=== PATIENT | male | born 1970 | race Two or more races ===

== ENCOUNTER 2022-12-06 17:08 | Inpatient (IN) | payer BC, OTHER ==
[~2022-12-06] VITALS: Ht 177.8 cm; Wt 155.0 kg
[2022-12-06] MEDS ORDERED: FUROSEMIDE 100 MG/10ML VIAL IV ONE (17:45)
[2022-12-06 18:20] LABS: Hemoglobin 12.8 g/dL (13.5-17.5); Mean Corpuscular Hgb Conc. 30.9 g/dL (32.0-36.0); Nucleated Red Blood Cells % 0.1 %
[2022-12-06 18:22] LABS: Basophils # (auto) 0.2 10 ^3/uL (0-0.2); Eosinophils # (auto) 0.4 10 ^3/uL (0-0.8); Eosinophils % (auto) 2.8 % (0.0-7.0); Hematocrit 41.4 % (41.0-53.0); Lymphocytes # (auto) 2.2 10 ^3/uL (0.4-5.4); Lymphocytes % (auto) 14.2 % (10.0-50.0); Mean Corpuscular Hemoglobin 25.4 pg (28.0-32.0); Mean Corpuscular Volume 82.1 fL (80.0-100.0); Monocytes # (auto) 1.6 10 ^3/uL (0-1.3); Monocytes % (auto) 9.9 % (0.0-12.0); Neutrophils # (auto) 11.4 10 ^3/uL (1.6-8.6); Neutrophils % (auto) 72.1 % (37.0-80.0); Red Blood Cells 5.04 10^6/uL (4.5-5.90); White Blood Cell 15.8 10^3/uL (4.4-10.8)
[2022-12-06 18:38] LABS: Albumin 3.2 g/dL (3.4-5.0); Calcium 7.6 mg/dL (8.5-10.1); Magnesium 2.9 mg/dL (1.6-2.6); Potassium 4.6 mmol/L (3.5-5.1)
[2022-12-06 18:41] LABS: Bilirubin, Total 0.3 mg/dL (0.2-1.0); Total Protein 7.4 g/dL (6.4-8.2)
[2022-12-06] MEDS ORDERED: NITROGLYCERIN 0.4 MG SL TAB SL PRN (22:30)
[2022-12-06] MEDS ORDERED: HYDROcodone-ACET 5/325MG TAB PO PRN (22:30)
[2022-12-06] MEDS ORDERED: MORPHINE SULFATE INJ 2 MG/ml SYRG IV PRN (22:30)
[2022-12-06] MEDS ORDERED: hydrALAZINE HCL 20 MG/ML VL IV PRN (22:30)
[2022-12-06] MEDS ORDERED: cefTRIAXone 1GM/50ML D5W 50 ML IV ONE (22:30)
[2022-12-06] MEDS ORDERED: DOCUSATE SOD 100 MG CAP PO PRN (22:30)
[2022-12-06] MEDS ORDERED: methylPREDNISolone SOD SUCC 125 MG/2 ML VL IV ONE (22:30)
[2022-12-06] MEDS ORDERED: NALOXONE HCL 1MG/ML 2ML SYRINGE ONE ×2 (23:53)
[2022-12-07] VITALS (38 sets, daily range): BP systolic 77–161; BP diastolic 34–86
[2022-12-07] MEDS ORDERED: ROCURONIUM 10MG/ML 10ML VIAL IV ONE ×4 (00:01→03:15)
[2022-12-07] MEDS ORDERED: NALOXONE HCL 0.4 MG/ML VIAL ONE (00:01)
[2022-12-07] MEDS ORDERED: KETAMINE HCL 10 ML ONE (00:04)
[2022-12-07] MEDS ORDERED: SODIUM BICARBONATE 8.4 % INJ 50ML VIAL IV ONE ×2 (00:09→00:10)
[2022-12-07] MEDS ORDERED: NALOXONE HCL 0.4 MG/ML VIAL IV ONE ×2 (00:15)
[2022-12-07] MEDS ORDERED: KETAMINE 50mg/ML 10ml Vial (500mg/10ml) IV ONE (00:30)
[2022-12-07] MEDS ORDERED: NALOXONE HCL 1MG/ML 2ML SYRINGE IV ONE (01:00)
[2022-12-07] MEDS ORDERED: MIDAZOLAM DRIP 50 mg/50mL 50 ML IV ONE (02:02)
[2022-12-07] MEDS ORDERED: fentaNYL Drip 2500mCg/250mlNS 250 ML IV ONE (02:09)
[2022-12-07] MEDS: fentaNYL Drip 2500mCg/250mlNS 250 ML IV SCH ×2 (02:34→23:56)
[2022-12-07] MEDS: MIDAZOLAM DRIP 50 mg/50mL 50 ML IV SCH ×3 (02:34→23:56)
[2022-12-07] MEDS ORDERED: PROPOFOL 100 ML IV ONE (02:44)
[2022-12-07] MEDS ORDERED: SODIUM CHLORIDE 0.9% 1,000 ML IV ONE (03:00)
[2022-12-07] MEDS ORDERED: NOREPINEPHRINE 8 MG/250ML KIT 250 ML IV ONE (03:13)
[2022-12-07] MEDS: PROPOFOL 100 ML IV SCH ×2 (03:34→21:49)
[2022-12-07] MEDS: NOREPINEPHRINE 8 MG/250ML KIT 250 ML IV SCH (03:35)
[2022-12-07 05:19] LABS: Basophils # (auto) 0.1 10 ^3/uL (0-0.2); Eosinophils # (auto) 0 10 ^3/uL (0-0.8); Eosinophils % (auto) 0.1 % (0.0-7.0); Mean Corpuscular Hemoglobin 25.8 pg (28.0-32.0); Nucleated Red Blood Cells % 0.2 %
[2022-12-07 05:21] LABS: Basophils % (auto) 0.6 % (0.0-2.0); Hematocrit 44.2 % (41.0-53.0); Hemoglobin 13.8 g/dL (13.5-17.5); Lymphocytes # (auto) 1.3 10 ^3/uL (0.4-5.4); Lymphocytes % (auto) 5.4 % (10.0-50.0); Mean Corpuscular Hgb Conc. 31.1 g/dL (32.0-36.0); Monocytes # (auto) 2.7 10 ^3/uL (0-1.3); Monocytes % (auto) 11.2 % (0.0-12.0); Neutrophils % (auto) 82.7 % (37.0-80.0); Red Blood Cells 5.33 10^6/uL (4.5-5.90); Red Cell Distribution Width 16.7 % (11.8-14.3); White Blood Cell 24.2 10^3/uL (4.4-10.8)
[2022-12-07 05:32] LABS: Albumin 3.5 g/dL (3.4-5.0); Calcium 7.7 mg/dL (8.5-10.1); Potassium 5.1 mmol/L (3.5-5.1)
[2022-12-07 05:36] LABS: BUN/Creatinine Ratio 16.3 (10.0-20.0); Bilirubin, Total 0.5 mg/dL (0.2-1.0); Total Protein 8.3 g/dL (6.4-8.2)
[2022-12-07] MEDS ORDERED: methylPREDNISolone SOD SUCC 40 MG/ML VL IV SCH (06:00)
[2022-12-07] MEDS: SODIUM CHLOR 0.9% PF (SALINE LOCK) 10ML VIAL/SYR IV SCH ×3 (06:01→21:50)
[2022-12-07] MEDS: ACETAMINOPHEN 325 MG TAB PO PRN (06:35)
[2022-12-07] MEDS ORDERED: ACETAMINOPHEN 650 MG RECT SUPP PR PRN (07:00)
[2022-12-07 07:21] LABS: Urine Bacteria NONE SEEN /hpf (None Seen); Urine Blood TRACE /uL (Negative); Urine Specific Gravity 1.022 (1.001-1.035); Urine WBC 1 /hpf (0 - 3)
[2022-12-07] MEDS: cefTRIAXone 1GM/50ML D5W 50 ML IV SCH (09:55)
[2022-12-07] MEDS: ZINC SULFATE 220mg CAP or TAB PO SCH (10:00)
[2022-12-07] MEDS: amLODIPine BESYLATE 5 MG TAB PO SCH (10:00)
[2022-12-07] MEDS: ENOXAPARIN SOD 40 MG/0.4 ML SYRINGE SC SCH (10:42)
[2022-12-07] MEDS: FUROSEMIDE 40 MG/4 ML VIAL IV SCH (10:45)
[2022-12-07] MEDS: FAMOTIDINE (10MG/ML) 2ML VL IV SCH (10:46)
[2022-12-07] MEDS: ASPirin 81 mg TAB PO SCH (10:55)
[2022-12-07] MEDS ORDERED: AZITHROMYCIN 500MG/ 250ML 250 ML IV ONE (12:30)
[2022-12-08] VITALS (84 sets, daily range): BP systolic 94–151; BP diastolic 55–84
[2022-12-08] MEDS: PROPOFOL 100 ML IV SCH ×4 (01:58→19:31)
[2022-12-08] MEDS: NOREPINEPHRINE 8 MG/250ML KIT 250 ML IV SCH (03:30)
[2022-12-08] MEDS: SODIUM CHLOR 0.9% PF (SALINE LOCK) 10ML VIAL/SYR IV SCH ×4 (05:26→22:00)
[2022-12-08 05:35] LABS: Basophils # (auto) 0.1 10 ^3/uL (0-0.2); Eosinophils # (auto) 0.1 10 ^3/uL (0-0.8); Eosinophils % (auto) 0.5 % (0.0-7.0); Hemoglobin 11.9 g/dL (13.5-17.5); Neutrophils # (auto) 10.6 10 ^3/uL (1.6-8.6); Nucleated Red Blood Cells % 0.1 %
[2022-12-08 05:37] LABS: Basophils % (auto) 0.8 % (0.0-2.0); Hematocrit 37.5 % (41.0-53.0); Lymphocytes # (auto) 1.6 10 ^3/uL (0.4-5.4); Lymphocytes % (auto) 11.5 % (10.0-50.0); Mean Corpuscular Hemoglobin 25.1 pg (28.0-32.0); Mean Corpuscular Hgb Conc. 31.8 g/dL (32.0-36.0); Monocytes # (auto) 1.4 10 ^3/uL (0-1.3); Neutrophils % (auto) 77.2 % (37.0-80.0); Red Blood Cells 4.75 10^6/uL (4.5-5.90); Red Cell Distribution Width 16.4 % (11.8-14.3); White Blood Cell 13.8 10^3/uL (4.4-10.8)
[2022-12-08 05:57] LABS: Calcium 7.7 mg/dL (8.5-10.1); Potassium 3.5 mmol/L (3.5-5.1)
[2022-12-08] MEDS: ASPirin 81 mg TAB PO SCH (09:37)
[2022-12-08] MEDS: MIDAZOLAM DRIP 50 mg/50mL 50 ML IV SCH ×3 (09:37→23:15)
[2022-12-08] MEDS: ZINC SULFATE 220mg CAP or TAB PO SCH (09:37)
[2022-12-08] MEDS: FAMOTIDINE (10MG/ML) 2ML VL IV SCH (09:37)
[2022-12-08] MEDS: amLODIPine BESYLATE 5 MG TAB PO SCH (09:38)
[2022-12-08] MEDS: ENOXAPARIN SOD 40 MG/0.4 ML SYRINGE SC SCH (09:38)
[2022-12-08] MEDS: AZITHROMYCIN 500MG/ 250ML 250 ML IV SCH (09:38)
[2022-12-08] MEDS: cefTRIAXone 1GM/50ML D5W 50 ML IV SCH (09:38)
[2022-12-08] MEDS: FUROSEMIDE 40 MG/4 ML VIAL IV SCH ×2 (09:38→18:10)
[2022-12-08] MEDS: fentaNYL Drip 2500mCg/250mlNS 250 ML IV SCH (09:39)
[2022-12-08 11:49] LABS: INR 1.16 (0.9-1.15); Partial Thromboplastin Time 28.6 sec (24.6-33.4)
[2022-12-08] MEDS ORDERED: LIDOCAINE 1% (LOCAL ANESTH.) PF 5ml SDV ID ONE (14:45)
[2022-12-08] MEDS ORDERED: PERCOT PO (17:11)
[2022-12-08] MEDS ORDERED: MORP15TA PO (17:11)
[2022-12-08] MEDS: Jevity 1.2 Cal/Fiber 1 Liter GT SCH (19:27)
[2022-12-09] VITALS (97 sets, daily range): BP systolic 98–158; BP diastolic 58–99
[2022-12-09] MEDS: fentaNYL Drip 2500mCg/250mlNS 250 ML IV SCH ×2 (00:39→12:56)
[2022-12-09] MEDS: PROPOFOL 100 ML IV SCH ×5 (01:31→22:26)
[2022-12-09] MEDS: NOREPINEPHRINE 8 MG/250ML KIT 250 ML IV SCH (03:30)
[2022-12-09] MEDS: MIDAZOLAM DRIP 50 mg/50mL 50 ML IV SCH ×5 (03:48→20:23)
[2022-12-09 05:17] LABS: Basophils # (auto) 0.1 10 ^3/uL (0-0.2); Eosinophils # (auto) 0.2 10 ^3/uL (0-0.8); Eosinophils % (auto) 2.2 % (0.0-7.0); Lymphocytes # (auto) 1.3 10 ^3/uL (0.4-5.4); Monocytes # (auto) 0.9 10 ^3/uL (0-1.3)
[2022-12-09 05:20] LABS: Basophils % (auto) 1.1 % (0.0-2.0); Hematocrit 37.3 % (41.0-53.0); Hemoglobin 12.3 g/dL (13.5-17.5); Lymphocytes % (auto) 12.4 % (10.0-50.0); Mean Corpuscular Hemoglobin 26.1 pg (28.0-32.0); Mean Corpuscular Hgb Conc. 32.9 g/dL (32.0-36.0); Mean Corpuscular Volume 79.6 fL (80.0-100.0); Monocytes % (auto) 8.1 % (0.0-12.0); Neutrophils # (auto) 8.1 10 ^3/uL (1.6-8.6); Neutrophils % (auto) 76.2 % (37.0-80.0); Red Blood Cells 4.69 10^6/uL (4.5-5.90); Red Cell Distribution Width 16.4 % (11.8-14.3); White Blood Cell 10.7 10^3/uL (4.4-10.8)
[2022-12-09 05:33] LABS: Calcium 7.9 mg/dL (8.5-10.1); Potassium 3.6 mmol/L (3.5-5.1)
[2022-12-09 05:35] LABS: BUN/Creatinine Ratio 25.7 (10.0-20.0)
[2022-12-09] MEDS: FUROSEMIDE 40 MG/4 ML VIAL IV SCH ×2 (06:00→17:51)
[2022-12-09] MEDS: SODIUM CHLOR 0.9% PF (SALINE LOCK) 10ML VIAL/SYR IV SCH ×5 (06:00→22:27)
[2022-12-09] MEDS: cefTRIAXone 1GM/50ML D5W 50 ML IV SCH (08:01)
[2022-12-09] MEDS: amLODIPine BESYLATE 5 MG TAB PO SCH (10:00)
[2022-12-09] MEDS: AZITHROMYCIN 500MG/ 250ML 250 ML IV SCH (10:07)
[2022-12-09] MEDS: FAMOTIDINE (10MG/ML) 2ML VL IV SCH (10:07)
[2022-12-09] MEDS: ASPirin 81 mg TAB PO SCH (10:08)
[2022-12-09] MEDS: ENOXAPARIN SOD 40 MG/0.4 ML SYRINGE SC SCH (10:08)
[2022-12-09] MEDS: ZINC SULFATE 220mg CAP or TAB PO SCH (10:08)
[2022-12-10] VITALS (104 sets, daily range): BP systolic 92–138; BP diastolic 46–97
[2022-12-10] MEDS: MIDAZOLAM DRIP 50 mg/50mL 50 ML IV SCH ×7 (00:29→21:34)
[2022-12-10] MEDS: PROPOFOL 100 ML IV SCH ×5 (01:47→19:57)
[2022-12-10] MEDS: NOREPINEPHRINE 8 MG/250ML KIT 250 ML IV SCH (03:30)
[2022-12-10] MEDS: fentaNYL Drip 2500mCg/250mlNS 250 ML IV SCH ×2 (03:46→15:11)
[2022-12-10 05:07] LABS: Basophils # (auto) 0.1 10 ^3/uL (0-0.2); Eosinophils # (auto) 0.3 10 ^3/uL (0-0.8); Hemoglobin 12.9 g/dL (13.5-17.5); Monocytes # (auto) 0.7 10 ^3/uL (0-1.3); Neutrophils # (auto) 5.5 10 ^3/uL (1.6-8.6); Nucleated Red Blood Cells % 0.1 %; Red Cell Distribution Width 16.4 % (11.8-14.3)
[2022-12-10 05:09] LABS: Eosinophils % (auto) 4.1 % (0.0-7.0); Hematocrit 39.8 % (41.0-53.0); Lymphocytes # (auto) 1.8 10 ^3/uL (0.4-5.4); Mean Corpuscular Hemoglobin 25.7 pg (28.0-32.0); Mean Corpuscular Hgb Conc. 32.4 g/dL (32.0-36.0); Mean Corpuscular Volume 79.2 fL (80.0-100.0); Monocytes % (auto) 8.7 % (0.0-12.0); Neutrophils % (auto) 65.2 % (37.0-80.0); Red Blood Cells 5.02 10^6/uL (4.5-5.90); White Blood Cell 8.4 10^3/uL (4.4-10.8)
[2022-12-10 05:21] LABS: BUN/Creatinine Ratio 22.9 (10.0-20.0); Potassium 3.3 mmol/L (3.5-5.1)
[2022-12-10] MEDS: SODIUM CHLOR 0.9% PF (SALINE LOCK) 10ML VIAL/SYR IV SCH ×5 (06:16→21:42)
[2022-12-10] MEDS: FUROSEMIDE 40 MG/4 ML VIAL IV SCH (06:16)
[2022-12-10] MEDS: cefTRIAXone 1GM/50ML D5W 50 ML IV SCH (08:57)
[2022-12-10] MEDS: amLODIPine BESYLATE 5 MG TAB PO SCH (10:00)
[2022-12-10] MEDS: ASPirin 81 mg TAB PO SCH (10:33)
[2022-12-10] MEDS: ZINC SULFATE 220mg CAP or TAB PO SCH (10:33)
[2022-12-10] MEDS: FAMOTIDINE (10MG/ML) 2ML VL IV SCH (10:33)
[2022-12-10] MEDS: ENOXAPARIN SOD 40 MG/0.4 ML SYRINGE SC SCH (10:33)
[2022-12-10] MEDS: AZITHROMYCIN 500MG/ 250ML 250 ML IV SCH (10:33)
[2022-12-10] MEDS: POTASSIUM CHL 20MEQ/100ML 100 ML IV SCH ×2 (10:38→13:07)
[2022-12-11] VITALS (101 sets, daily range): BP systolic 84–143; BP diastolic 44–87
[2022-12-11] MEDS: PROPOFOL 100 ML IV SCH ×5 (00:28→21:24)
[2022-12-11] MEDS: MIDAZOLAM DRIP 50 mg/50mL 50 ML IV SCH ×5 (01:27→21:24)
[2022-12-11] MEDS: NOREPINEPHRINE 8 MG/250ML KIT 250 ML IV SCH (03:30)
[2022-12-11] MEDS: fentaNYL Drip 2500mCg/250mlNS 250 ML IV SCH ×2 (03:55→15:19)
[2022-12-11 05:23] LABS: Basophils # (auto) 0.1 10 ^3/uL (0-0.2); Basophils % (auto) 0.9 % (0.0-2.0); Eosinophils # (auto) 0.4 10 ^3/uL (0-0.8); Hemoglobin 12.9 g/dL (13.5-17.5); Monocytes # (auto) 0.7 10 ^3/uL (0-1.3)
[2022-12-11 05:26] LABS: Eosinophils % (auto) 5.1 % (0.0-7.0); Hematocrit 39.5 % (41.0-53.0); Lymphocytes # (auto) 1.6 10 ^3/uL (0.4-5.4); Lymphocytes % (auto) 19.2 % (10.0-50.0); Mean Corpuscular Hgb Conc. 32.8 g/dL (32.0-36.0); Mean Corpuscular Volume 79.2 fL (80.0-100.0); Monocytes % (auto) 8.5 % (0.0-12.0); Neutrophils # (auto) 5.4 10 ^3/uL (1.6-8.6); Neutrophils % (auto) 66.3 % (37.0-80.0); Nucleated Red Blood Cells % 0.1 %; Red Blood Cells 4.99 10^6/uL (4.5-5.90); Red Cell Distribution Width 16.5 % (11.8-14.3); White Blood Cell 8.2 10^3/uL (4.4-10.8)
[2022-12-11 05:33] LABS: Calcium 8.2 mg/dL (8.5-10.1); Potassium 3.3 mmol/L (3.5-5.1)
[2022-12-11 05:35] LABS: BUN/Creatinine Ratio 20.2 (10.0-20.0)
[2022-12-11] MEDS: SODIUM CHLOR 0.9% PF (SALINE LOCK) 10ML VIAL/SYR IV SCH ×5 (05:58→21:23)
[2022-12-11] MEDS: amLODIPine BESYLATE 5 MG TAB PO SCH (10:00)
[2022-12-11] MEDS: cefTRIAXone 1GM/50ML D5W 50 ML IV SCH (10:12)
[2022-12-11] MEDS: FAMOTIDINE (10MG/ML) 2ML VL IV SCH (10:12)
[2022-12-11] MEDS: FUROSEMIDE 40 MG/4 ML VIAL IV SCH (10:12)
[2022-12-11] MEDS: ENOXAPARIN SOD 40 MG/0.4 ML SYRINGE SC SCH (10:15)
[2022-12-11] MEDS: ZINC SULFATE 220mg CAP or TAB PO SCH (10:15)
[2022-12-11] MEDS: AZITHROMYCIN 500MG/ 250ML 250 ML IV SCH (10:15)
[2022-12-11] MEDS: ASPirin 81 mg TAB PO SCH (10:15)
[2022-12-11] MEDS: POTASSIUM CHL 20MEQ/100ML 100 ML IV SCH ×2 (15:13→17:41)
[2022-12-12] VITALS (95 sets, daily range): BP systolic 80–191; BP diastolic 44–115
[2022-12-12] MEDS: NOREPINEPHRINE 8 MG/250ML KIT 250 ML IV SCH (03:30)
[2022-12-12] MEDS: PROPOFOL 100 ML IV SCH ×4 (03:36→20:28)
[2022-12-12 05:49] LABS: Basophils # (auto) 0.1 10 ^3/uL (0-0.2); Eosinophils # (auto) 0.4 10 ^3/uL (0-0.8); Lymphocytes # (auto) 1.8 10 ^3/uL (0.4-5.4); Mean Corpuscular Hemoglobin 25.7 pg (28.0-32.0); Mean Corpuscular Hgb Conc. 32.1 g/dL (32.0-36.0)
[2022-12-12 05:52] LABS: Basophils % (auto) 0.6 % (0.0-2.0); Eosinophils % (auto) 4.3 % (0.0-7.0); Hematocrit 41.4 % (41.0-53.0); Hemoglobin 13.3 g/dL (13.5-17.5); Lymphocytes % (auto) 19.4 % (10.0-50.0); Mean Corpuscular Volume 79.9 fL (80.0-100.0); Monocytes # (auto) 1.2 10 ^3/uL (0-1.3); Monocytes % (auto) 13.5 % (0.0-12.0); Neutrophils # (auto) 5.7 10 ^3/uL (1.6-8.6); Neutrophils % (auto) 62.2 % (37.0-80.0); Nucleated Red Blood Cells % 0.1 %; Red Blood Cells 5.18 10^6/uL (4.5-5.90); Red Cell Distribution Width 16.4 % (11.8-14.3); White Blood Cell 9.1 10^3/uL (4.4-10.8)
[2022-12-12] MEDS: MIDAZOLAM DRIP 50 mg/50mL 50 ML IV SCH ×4 (05:58→22:08)
[2022-12-12] MEDS: SODIUM CHLOR 0.9% PF (SALINE LOCK) 10ML VIAL/SYR IV SCH ×5 (05:58→22:09)
[2022-12-12 05:59] LABS: BUN/Creatinine Ratio 19.3 (10.0-20.0); Calcium 8.4 mg/dL (8.5-10.1); Potassium 3.7 mmol/L (3.5-5.1)
[2022-12-12] MEDS: fentaNYL Drip 2500mCg/250mlNS 250 ML IV SCH ×2 (05:59→20:29)
[2022-12-12] MEDS: cefTRIAXone 1GM/50ML D5W 50 ML IV SCH (09:05)
[2022-12-12] MEDS ORDERED: levoFLOXacin 750MG 150 ML IV ONE (10:45)
[2022-12-12] MEDS: FUROSEMIDE 40 MG/4 ML VIAL IV SCH (11:01)
[2022-12-12] MEDS: FAMOTIDINE (10MG/ML) 2ML VL IV SCH (11:04)
[2022-12-12] MEDS: ASPirin 81 mg TAB PO SCH (11:04)
[2022-12-12] MEDS: ZINC SULFATE 220mg CAP or TAB PO SCH (11:04)
[2022-12-12] MEDS: amLODIPine BESYLATE 5 MG TAB PO SCH (11:05)
[2022-12-12] MEDS: ENOXAPARIN SOD 40 MG/0.4 ML SYRINGE SC SCH (11:05)
[2022-12-13] VITALS (97 sets, daily range): BP systolic 79–148; BP diastolic 38–91
[2022-12-13] MEDS: MIDAZOLAM DRIP 50 mg/50mL 50 ML IV SCH ×6 (02:56→23:27)
[2022-12-13] MEDS: PROPOFOL 100 ML IV SCH ×3 (02:57→20:18)
[2022-12-13] MEDS: NOREPINEPHRINE 8 MG/250ML KIT 250 ML IV SCH (03:30)
[2022-12-13 04:48] LABS: BUN/Creatinine Ratio 16.4 (10.0-20.0); Potassium 3.5 mmol/L (3.5-5.1)
[2022-12-13 04:50] LABS: Basophils # (auto) 0.1 10 ^3/uL (0-0.2); Eosinophils # (auto) 0.7 10 ^3/uL (0-0.8); Monocytes # (auto) 0.9 10 ^3/uL (0-1.3)
[2022-12-13 04:52] LABS: Basophils % (auto) 0.7 % (0.0-2.0); Eosinophils % (auto) 6.8 % (0.0-7.0); Hematocrit 39.1 % (41.0-53.0); Hemoglobin 12.8 g/dL (13.5-17.5); Lymphocytes # (auto) 1.6 10 ^3/uL (0.4-5.4); Lymphocytes % (auto) 16.4 % (10.0-50.0); Mean Corpuscular Hemoglobin 25.7 pg (28.0-32.0); Mean Corpuscular Hgb Conc. 32.7 g/dL (32.0-36.0); Mean Corpuscular Volume 78.6 fL (80.0-100.0); Monocytes % (auto) 9.7 % (0.0-12.0); Neutrophils # (auto) 6.4 10 ^3/uL (1.6-8.6); Neutrophils % (auto) 66.4 % (37.0-80.0); Nucleated Red Blood Cells % 0.2 %; Red Blood Cells 4.97 10^6/uL (4.5-5.90); Red Cell Distribution Width 16.6 % (11.8-14.3); White Blood Cell 9.6 10^3/uL (4.4-10.8)
[2022-12-13] MEDS: fentaNYL Drip 2500mCg/250mlNS 250 ML IV SCH ×2 (06:57→19:09)
[2022-12-13] MEDS: SODIUM CHLOR 0.9% PF (SALINE LOCK) 10ML VIAL/SYR IV SCH ×5 (06:58→22:16)
[2022-12-13] MEDS ORDERED: levoFLOXacin 750MG 150 ML IV SCH (10:00)
[2022-12-13] MEDS ORDERED: METOCLOPRAMIDE HCL 5MG/ml INJ 2ml VIAL IV ONE (11:00)
[2022-12-13] MEDS ORDERED: ceFAZolin 1GM/50ML 50 ML IV ONE (11:00)
[2022-12-13] MEDS ORDERED: LACTULOSE 20Gm/30ML SOLN PO ONE (11:00)
[2022-12-13] MEDS ORDERED: POTASSIUM EFFERVESENT TAB 25 MEQ GT ONE (11:00)
[2022-12-13] MEDS: FAMOTIDINE (10MG/ML) 2ML VL IV SCH (12:31)
[2022-12-13] MEDS: ASPirin 81 mg TAB PO SCH (12:31)
[2022-12-13] MEDS: ENOXAPARIN SOD 40 MG/0.4 ML SYRINGE SC SCH (12:32)
[2022-12-13] MEDS: ceFAZolin 1GM/50ML 50 ML IV SCH ×2 (13:54→22:02)
[2022-12-13] MEDS: METOCLOPRAMIDE HCL 5MG/ml INJ 2ml VIAL IV SCH ×2 (13:54→22:04)
[2022-12-13] MEDS: LACTULOSE 20Gm/30ML SOLN PO SCH (22:03)
[2022-12-13] MEDS: FUROSEMIDE 40 MG/4 ML VIAL IV SCH (22:03)
[2022-12-13] MEDS: POTASSIUM EFFERVESENT TAB 25 MEQ GT SCH (22:03)
[2022-12-14] VITALS (100 sets, daily range): BP systolic 84–151; BP diastolic 46–95
[2022-12-14] MEDS: Jevity 1.2 Cal/Fiber 1 Liter GT SCH (00:08)
[2022-12-14] MEDS: PROPOFOL 100 ML IV SCH ×4 (03:01→23:42)
[2022-12-14] MEDS: MIDAZOLAM DRIP 50 mg/50mL 50 ML IV SCH ×6 (03:01→22:02)
[2022-12-14] MEDS: NOREPINEPHRINE 8 MG/250ML KIT 250 ML IV SCH (03:30)
[2022-12-14] MEDS: METOCLOPRAMIDE HCL 5MG/ml INJ 2ml VIAL IV SCH ×3 (05:24→21:43)
[2022-12-14] MEDS: ceFAZolin 1GM/50ML 50 ML IV SCH ×3 (05:24→21:43)
[2022-12-14] MEDS: SODIUM CHLOR 0.9% PF (SALINE LOCK) 10ML VIAL/SYR IV SCH ×5 (05:25→21:44)
[2022-12-14] MEDS: fentaNYL Drip 2500mCg/250mlNS 250 ML IV SCH ×2 (05:45→23:41)
[2022-12-14 05:47] LABS: Basophils # (auto) 0.1 10 ^3/uL (0-0.2); Basophils % (auto) 1.1 % (0.0-2.0); Eosinophils # (auto) 0.5 10 ^3/uL (0-0.8); Hemoglobin 12.2 g/dL (13.5-17.5); Monocytes # (auto) 0.8 10 ^3/uL (0-1.3); White Blood Cell 7.1 10^3/uL (4.4-10.8)
[2022-12-14 05:54] LABS: Hematocrit 36.2 % (41.0-53.0); Lymphocytes # (auto) 1.3 10 ^3/uL (0.4-5.4); Lymphocytes % (auto) 18.2 % (10.0-50.0); Mean Corpuscular Hemoglobin 26.9 pg (28.0-32.0); Mean Corpuscular Hgb Conc. 33.5 g/dL (32.0-36.0); Mean Corpuscular Volume 80.3 fL (80.0-100.0); Monocytes % (auto) 11.4 % (0.0-12.0); Neutrophils # (auto) 4.4 10 ^3/uL (1.6-8.6); Neutrophils % (auto) 62.3 % (37.0-80.0); Nucleated Red Blood Cells % 0.1 %; Red Blood Cells 4.52 10^6/uL (4.5-5.90); Red Cell Distribution Width 16.4 % (11.8-14.3)
[2022-12-14 06:07] LABS: Potassium 3.1 mmol/L (3.5-5.1)
[2022-12-14 06:23] LABS: Albumin 2.3 g/dL (3.4-5.0); Bilirubin, Total 0.8 mg/dL (0.2-1.0); Calcium 6.4 mg/dL (8.5-10.1)
[2022-12-14] MEDS: POTASSIUM CHL 20MEQ/100ML 100 ML IV SCH ×2 (09:30→10:07)
[2022-12-14 09:55] LABS: BUN/Creatinine Ratio 18.8 (10.0-20.0)
[2022-12-14 09:56] LABS: Total Protein 6.3 g/dL (6.4-8.2)
[2022-12-14] MEDS: LACTULOSE 20Gm/30ML SOLN PO SCH ×2 (10:06→21:44)
[2022-12-14] MEDS: FAMOTIDINE (10MG/ML) 2ML VL IV SCH (10:06)
[2022-12-14] MEDS: FUROSEMIDE 40 MG/4 ML VIAL IV SCH ×2 (10:06→21:44)
[2022-12-14] MEDS: POTASSIUM EFFERVESENT TAB 25 MEQ GT SCH ×2 (10:07→21:44)
[2022-12-14] MEDS: ASPirin 81 mg TAB PO SCH (10:07)
[2022-12-14] MEDS: ENOXAPARIN SOD 40 MG/0.4 ML SYRINGE SC SCH (10:07)
[2022-12-14] MEDS ORDERED: POTASSIUM CHL 20MEQ/100ML 100 ML IV SCH (16:00)
[2022-12-14] MEDS: ACETAMINOPHEN 325 MG TAB PO PRN (21:44)
[2022-12-15] VITALS (104 sets, daily range): BP systolic 82–158; BP diastolic 44–94
[2022-12-15] MEDS: NOREPINEPHRINE 8 MG/250ML KIT 250 ML IV SCH ×2 (03:30→18:06)
[2022-12-15 05:08] LABS: Basophils # (auto) 0.1 10 ^3/uL (0-0.2); Eosinophils # (auto) 0.6 10 ^3/uL (0-0.8); Eosinophils % (auto) 5.4 % (0.0-7.0); Hematocrit 43.4 % (41.0-53.0); Hemoglobin 14.2 g/dL (13.5-17.5); Lymphocytes # (auto) 1.6 10 ^3/uL (0.4-5.4); Lymphocytes % (auto) 14.6 % (10.0-50.0); Mean Corpuscular Hemoglobin 25.8 pg (28.0-32.0); Mean Corpuscular Hgb Conc. 32.8 g/dL (32.0-36.0); Mean Corpuscular Volume 78.7 fL (80.0-100.0); Monocytes # (auto) 1.2 10 ^3/uL (0-1.3); Monocytes % (auto) 10.8 % (0.0-12.0); Neutrophils # (auto) 7.4 10 ^3/uL (1.6-8.6); Neutrophils % (auto) 68.2 % (37.0-80.0); Nucleated Red Blood Cells % 0.2 %; Red Blood Cells 5.51 10^6/uL (4.5-5.90); Red Cell Distribution Width 16.6 % (11.8-14.3); White Blood Cell 10.8 10^3/uL (4.4-10.8)
[2022-12-15 05:21] LABS: Calcium 9.2 mg/dL (8.5-10.1); Potassium 3.9 mmol/L (3.5-5.1)
[2022-12-15 05:24] LABS: Bilirubin, Total 0.6 mg/dL (0.2-1.0); Total Protein 8.7 g/dL (6.4-8.2)
[2022-12-15] MEDS: SODIUM CHLOR 0.9% PF (SALINE LOCK) 10ML VIAL/SYR IV SCH ×5 (05:36→21:32)
[2022-12-15] MEDS: ceFAZolin 1GM/50ML 50 ML IV SCH ×3 (05:36→21:32)
[2022-12-15] MEDS: METOCLOPRAMIDE HCL 5MG/ml INJ 2ml VIAL IV SCH ×3 (05:36→21:32)
[2022-12-15] MEDS: PROPOFOL 100 ML IV SCH ×4 (06:54→22:36)
[2022-12-15] MEDS: LACTULOSE 20Gm/30ML SOLN PO SCH ×2 (09:57→21:32)
[2022-12-15] MEDS: FUROSEMIDE 40 MG/4 ML VIAL IV SCH (09:57)
[2022-12-15] MEDS: ASPirin 81 mg TAB PO SCH (09:57)
[2022-12-15] MEDS: FAMOTIDINE (10MG/ML) 2ML VL IV SCH (09:58)
[2022-12-15] MEDS: ENOXAPARIN SOD 40 MG/0.4 ML SYRINGE SC SCH (09:58)
[2022-12-15] MEDS: POTASSIUM EFFERVESENT TAB 25 MEQ GT SCH (09:58)
[2022-12-15] MEDS: MIDAZOLAM DRIP 50 mg/50mL 50 ML IV SCH ×2 (10:27→21:33)
[2022-12-15] MEDS: fentaNYL Drip 2500mCg/250mlNS 250 ML IV SCH (23:54)
[2022-12-16] VITALS (97 sets, daily range): BP systolic 86–156; BP diastolic 41–101
[2022-12-16] MEDS: PROPOFOL 100 ML IV SCH ×3 (01:38→21:41)
[2022-12-16 05:02] LABS: Basophils # (auto) 0.1 10 ^3/uL (0-0.2); Eosinophils # (auto) 0.5 10 ^3/uL (0-0.8); Lymphocytes # (auto) 1.8 10 ^3/uL (0.4-5.4); Mean Corpuscular Hgb Conc. 32.5 g/dL (32.0-36.0); Monocytes # (auto) 1.1 10 ^3/uL (0-1.3); Nucleated Red Blood Cells % 0.1 %
[2022-12-16 05:04] LABS: Basophils % (auto) 1.2 % (0.0-2.0); Eosinophils % (auto) 6.3 % (0.0-7.0); Hematocrit 43.8 % (41.0-53.0); Hemoglobin 14.2 g/dL (13.5-17.5); Lymphocytes % (auto) 21.3 % (10.0-50.0); Mean Corpuscular Hemoglobin 25.5 pg (28.0-32.0); Mean Corpuscular Volume 78.3 fL (80.0-100.0); Monocytes % (auto) 13.1 % (0.0-12.0); Neutrophils # (auto) 4.8 10 ^3/uL (1.6-8.6); Neutrophils % (auto) 58.1 % (37.0-80.0); Red Blood Cells 5.59 10^6/uL (4.5-5.90); Red Cell Distribution Width 16.7 % (11.8-14.3); White Blood Cell 8.3 10^3/uL (4.4-10.8)
[2022-12-16 05:16] LABS: Calcium 9.3 mg/dL (8.5-10.1); Potassium 3.6 mmol/L (3.5-5.1)
[2022-12-16] MEDS: ceFAZolin 1GM/50ML 50 ML IV SCH ×3 (05:38→21:42)
[2022-12-16] MEDS: METOCLOPRAMIDE HCL 5MG/ml INJ 2ml VIAL IV SCH ×3 (05:38→21:41)
[2022-12-16] MEDS: SODIUM CHLOR 0.9% PF (SALINE LOCK) 10ML VIAL/SYR IV SCH ×5 (05:39→21:46)
[2022-12-16] MEDS: FUROSEMIDE 40 MG/4 ML VIAL IV SCH (06:12)
[2022-12-16] MEDS: POTASSIUM EFFERVESENT TAB 25 MEQ GT SCH (06:12)
[2022-12-16] MEDS: ASPirin 81 mg TAB PO SCH (09:49)
[2022-12-16] MEDS: LACTULOSE 20Gm/30ML SOLN PO SCH ×2 (09:49→21:41)
[2022-12-16] MEDS: FAMOTIDINE (10MG/ML) 2ML VL IV SCH (09:53)
[2022-12-16] MEDS: ENOXAPARIN SOD 40 MG/0.4 ML SYRINGE SC SCH (09:53)
[2022-12-17] VITALS (104 sets, daily range): BP systolic 94–160; BP diastolic 51–99
[2022-12-17] MEDS: PROPOFOL 100 ML IV SCH ×9 (00:22→23:15)
[2022-12-17] MEDS: fentaNYL Drip 2500mCg/250mlNS 250 ML IV SCH (02:21)
[2022-12-17] MEDS: MIDAZOLAM DRIP 50 mg/50mL 50 ML IV SCH ×2 (02:30→20:36)
[2022-12-17] MEDS: ACETAMINOPHEN 325 MG TAB PO PRN (03:04)
[2022-12-17] MEDS: NOREPINEPHRINE 8 MG/250ML KIT 250 ML IV SCH ×3 (03:30→10:15)
[2022-12-17 05:02] LABS: Basophils # (auto) 0.1 10 ^3/uL (0-0.2); Eosinophils # (auto) 0.4 10 ^3/uL (0-0.8); Eosinophils % (auto) 4.7 % (0.0-7.0); Hemoglobin 13.9 g/dL (13.5-17.5); Lymphocytes # (auto) 1.8 10 ^3/uL (0.4-5.4); Neutrophils # (auto) 5.8 10 ^3/uL (1.6-8.6)
[2022-12-17 05:04] LABS: Basophils % (auto) 1.2 % (0.0-2.0); Hematocrit 43.1 % (41.0-53.0); Lymphocytes % (auto) 19.4 % (10.0-50.0); Mean Corpuscular Hemoglobin 25.5 pg (28.0-32.0); Mean Corpuscular Hgb Conc. 32.3 g/dL (32.0-36.0); Mean Corpuscular Volume 79.2 fL (80.0-100.0); Monocytes # (auto) 1.1 10 ^3/uL (0-1.3); Monocytes % (auto) 12.1 % (0.0-12.0); Neutrophils % (auto) 62.6 % (37.0-80.0); Nucleated Red Blood Cells % 0.1 %; Red Blood Cells 5.44 10^6/uL (4.5-5.90); White Blood Cell 9.2 10^3/uL (4.4-10.8)
[2022-12-17 05:18] LABS: BUN/Creatinine Ratio 19.8 (10.0-20.0); Calcium 8.8 mg/dL (8.5-10.1); Potassium 3.5 mmol/L (3.5-5.1)
[2022-12-17] MEDS: METOCLOPRAMIDE HCL 5MG/ml INJ 2ml VIAL IV SCH ×3 (05:42→21:37)
[2022-12-17] MEDS: ceFAZolin 1GM/50ML 50 ML IV SCH ×3 (05:44→21:36)
[2022-12-17] MEDS: SODIUM CHLOR 0.9% PF (SALINE LOCK) 10ML VIAL/SYR IV SCH ×5 (05:44→21:37)
[2022-12-17] MEDS: FUROSEMIDE 40 MG/4 ML VIAL IV SCH (06:31)
[2022-12-17] MEDS: POTASSIUM EFFERVESENT TAB 25 MEQ GT SCH (06:32)
[2022-12-17] MEDS: LACTULOSE 20Gm/30ML SOLN PO SCH ×2 (09:09→21:37)
[2022-12-17] MEDS: ASPirin 81 mg TAB PO SCH (09:10)
[2022-12-17] MEDS: ENOXAPARIN SOD 40 MG/0.4 ML SYRINGE SC SCH (09:10)
[2022-12-17] MEDS: FAMOTIDINE (10MG/ML) 2ML VL IV SCH (09:10)
[2022-12-18] VITALS (67 sets, daily range): BP systolic 83–164; BP diastolic 44–95
[2022-12-18] MEDS: PROPOFOL 100 ML IV SCH ×4 (00:33→05:36)
[2022-12-18] MEDS ORDERED: ACETAMINOPHEN 325 MG TAB PO PRN (01:00)
[2022-12-18] MEDS: fentaNYL Drip 2500mCg/250mlNS 250 ML IV SCH (04:10)
[2022-12-18 05:27] LABS: Calcium 8.9 mg/dL (8.5-10.1); Potassium 3.5 mmol/L (3.5-5.1)
[2022-12-18] MEDS: ceFAZolin 1GM/50ML 50 ML IV SCH ×3 (05:45→21:59)
[2022-12-18] MEDS: POTASSIUM EFFERVESENT TAB 25 MEQ GT SCH (05:55)
[2022-12-18] MEDS: SODIUM CHLOR 0.9% PF (SALINE LOCK) 10ML VIAL/SYR IV SCH ×5 (05:55→22:04)
[2022-12-18] MEDS: METOCLOPRAMIDE HCL 5MG/ml INJ 2ml VIAL IV SCH ×3 (05:55→22:00)
[2022-12-18] MEDS: FUROSEMIDE 40 MG/4 ML VIAL IV SCH (06:43)
[2022-12-18] MEDS: FAMOTIDINE (10MG/ML) 2ML VL IV SCH (09:25)
[2022-12-18] MEDS: LACTULOSE 20Gm/30ML SOLN PO SCH ×2 (09:26→22:00)
[2022-12-18] MEDS: ENOXAPARIN SOD 40 MG/0.4 ML SYRINGE SC SCH (09:26)
[2022-12-18] MEDS: ASPirin 81 mg TAB PO SCH (09:26)
[2022-12-18] MEDS: NOREPINEPHRINE 8 MG/250ML KIT 250 ML IV SCH (10:15)
[2022-12-18] MEDS ORDERED: FUROSEMIDE 40 MG/4 ML VIAL ONE (11:13)
[2022-12-18] MEDS ORDERED: FUROSEMIDE 40 MG/4 ML VIAL IV ONE (11:30)
[2022-12-19] VITALS (26 sets, daily range): BP systolic 113–141; BP diastolic 71–96
[2022-12-19] MEDS: fentaNYL Drip 2500mCg/250mlNS 250 ML IV SCH (02:30)
[2022-12-19] MEDS: MIDAZOLAM DRIP 50 mg/50mL 50 ML IV SCH (02:30)
[2022-12-19 05:04] LABS: Basophils # (auto) 0.1 10 ^3/uL (0-0.2); Basophils % (auto) 1.2 % (0.0-2.0); Eosinophils # (auto) 0.3 10 ^3/uL (0-0.8); Hemoglobin 14.3 g/dL (13.5-17.5); Lymphocytes # (auto) 1.5 10 ^3/uL (0.4-5.4); Nucleated Red Blood Cells % 0.1 %; Red Cell Distribution Width 16.6 % (11.8-14.3)
[2022-12-19 05:06] LABS: Eosinophils % (auto) 2.4 % (0.0-7.0); Hematocrit 44.3 % (41.0-53.0); Lymphocytes % (auto) 14.5 % (10.0-50.0); Mean Corpuscular Hemoglobin 25.6 pg (28.0-32.0); Mean Corpuscular Hgb Conc. 32.3 g/dL (32.0-36.0); Mean Corpuscular Volume 79.3 fL (80.0-100.0); Monocytes % (auto) 9.4 % (0.0-12.0); Neutrophils # (auto) 7.5 10 ^3/uL (1.6-8.6); Neutrophils % (auto) 72.5 % (37.0-80.0); Red Blood Cells 5.58 10^6/uL (4.5-5.90); White Blood Cell 10.3 10^3/uL (4.4-10.8)
[2022-12-19 05:08] LABS: Albumin 3.4 g/dL (3.4-5.0); Calcium 8.8 mg/dL (8.5-10.1); Potassium 3.6 mmol/L (3.5-5.1)
[2022-12-19 05:14] LABS: BUN/Creatinine Ratio 25.6 (10.0-20.0); Bilirubin, Total 0.6 mg/dL (0.2-1.0); Total Protein 8.8 g/dL (6.4-8.2)
[2022-12-19] MEDS: METOCLOPRAMIDE HCL 5MG/ml INJ 2ml VIAL IV SCH (05:59)
[2022-12-19] MEDS: ceFAZolin 1GM/50ML 50 ML IV SCH ×3 (05:59→22:25)
[2022-12-19] MEDS: POTASSIUM EFFERVESENT TAB 25 MEQ GT SCH (06:00)
[2022-12-19] MEDS: SODIUM CHLOR 0.9% PF (SALINE LOCK) 10ML VIAL/SYR IV SCH ×3 (06:00→22:33)
[2022-12-19] MEDS: FUROSEMIDE 40 MG/4 ML VIAL IV SCH (06:01)
[2022-12-19] MEDS: ONDANSETRON HCL 4 MG/2 ML VIAL IV PRN ×2 (06:53→22:36)
[2022-12-19] MEDS: FAMOTIDINE (10MG/ML) 2ML VL IV SCH (09:40)
[2022-12-19] MEDS: LACTULOSE 20Gm/30ML SOLN PO SCH (09:41)
[2022-12-19] MEDS: NOREPINEPHRINE 8 MG/250ML KIT 250 ML IV SCH (09:41)
[2022-12-19] MEDS: ENOXAPARIN SOD 40 MG/0.4 ML SYRINGE SC SCH (09:41)
[2022-12-19] MEDS: ASPirin 81 mg TAB PO SCH (09:41)
[2022-12-19] MEDS ORDERED: FUROSEMIDE 40 MG/4 ML VIAL IV ONE (11:45)
[2022-12-19] MEDS ORDERED: POTASSIUM CHL 20 Meq TABLET PO ONE (11:45)
[2022-12-19] MEDS: MORPHINE SULFATE INJ 2 MG/ml SYRG IV PRN ×3 (14:12→22:33)
[2022-12-19] MEDS: HYDROcodone-ACET 5/325MG TAB PO PRN (21:04)
[2022-12-20] VITALS (18 sets, daily range): BP systolic 127–150; BP diastolic 66–90
[2022-12-20] MEDS: MORPHINE SULFATE INJ 2 MG/ml SYRG IV PRN ×6 (02:14→22:50)
[2022-12-20] MEDS: ONDANSETRON HCL 4 MG/2 ML VIAL IV PRN ×6 (02:15→22:50)
[2022-12-20 05:38] LABS: Eosinophils # (auto) 0.3 10 ^3/uL (0-0.8); Eosinophils % (auto) 2.6 % (0.0-7.0); Hemoglobin 14.2 g/dL (13.5-17.5); Lymphocytes # (auto) 1.7 10 ^3/uL (0.4-5.4); Monocytes # (auto) 1.1 10 ^3/uL (0-1.3)
[2022-12-20 05:41] LABS: Basophils # (auto) 0.1 10 ^3/uL (0-0.2); Basophils % (auto) 1.3 % (0.0-2.0); Hematocrit 44.8 % (41.0-53.0); Lymphocytes % (auto) 15.4 % (10.0-50.0); Mean Corpuscular Hemoglobin 25.5 pg (28.0-32.0); Mean Corpuscular Hgb Conc. 31.6 g/dL (32.0-36.0); Mean Corpuscular Volume 80.6 fL (80.0-100.0); Neutrophils # (auto) 7.6 10 ^3/uL (1.6-8.6); Neutrophils % (auto) 70.7 % (37.0-80.0); Nucleated Red Blood Cells % 0.1 %; Red Blood Cells 5.56 10^6/uL (4.5-5.90); Red Cell Distribution Width 16.8 % (11.8-14.3); White Blood Cell 10.8 10^3/uL (4.4-10.8)
[2022-12-20 05:53] LABS: BUN/Creatinine Ratio 27.6 (10.0-20.0); Calcium 9.2 mg/dL (8.5-10.1); Potassium 3.7 mmol/L (3.5-5.1)
[2022-12-20] MEDS: FUROSEMIDE 40 MG/4 ML VIAL IV SCH (06:42)
[2022-12-20] MEDS: ceFAZolin 1GM/50ML 50 ML IV SCH ×3 (06:42→22:49)
[2022-12-20] MEDS: ASPirin 81 mg TAB PO SCH (10:01)
[2022-12-20] MEDS: ENOXAPARIN SOD 40 MG/0.4 ML SYRINGE SC SCH (10:01)
[2022-12-20] MEDS: FAMOTIDINE (10MG/ML) 2ML VL IV SCH (10:01)
[2022-12-20] MEDS: SODIUM CHLOR 0.9% PF (SALINE LOCK) 10ML VIAL/SYR IV SCH ×2 (10:01→22:00)
[2022-12-20] MEDS: HYDROcodone-ACET 5/325MG TAB PO PRN ×2 (10:02→16:46)
[2022-12-20] MEDS: POTASSIUM CHL 20 Meq TABLET PO SCH (10:03)
[2022-12-20] MEDS ORDERED: IOHEXOL 350 MG/ML 100ML IJ ONE (16:02)
[2022-12-21] VITALS (9 sets, daily range): BP systolic 115–146; BP diastolic 71–88
[2022-12-21] MEDS: MORPHINE SULFATE INJ 2 MG/ml SYRG IV PRN (02:51)
[2022-12-21] MEDS: ONDANSETRON HCL 4 MG/2 ML VIAL IV PRN (02:51)
[2022-12-21] MEDS: FUROSEMIDE 40 MG/4 ML VIAL IV SCH (06:05)
[2022-12-21] MEDS: ceFAZolin 1GM/50ML 50 ML IV SCH ×3 (06:05→22:22)
[2022-12-21 07:10] LABS: Calcium 8.3 mg/dL (8.5-10.1); Potassium 3.5 mmol/L (3.5-5.1)
[2022-12-21 07:12] LABS: BUN/Creatinine Ratio 25.7 (10.0-20.0)
[2022-12-21] MEDS: ENOXAPARIN SOD 40 MG/0.4 ML SYRINGE SC SCH (10:06)
[2022-12-21] MEDS: MORPHINE SULF 15mg ER tab PO SCH ×2 (10:06→22:22)
[2022-12-21] MEDS: ASPirin 81 mg TAB PO SCH (10:07)
[2022-12-21] MEDS: POTASSIUM CHL 20 Meq TABLET PO SCH (10:07)
[2022-12-21] MEDS: FAMOTIDINE (10MG/ML) 2ML VL IV SCH (10:07)
[2022-12-21] MEDS: SODIUM CHLOR 0.9% PF (SALINE LOCK) 10ML VIAL/SYR IV SCH ×2 (10:10→22:22)
[2022-12-21] MEDS: HYDROcodone-ACET 5/325MG TAB PO PRN ×2 (12:49→18:45)
[2022-12-22] VITALS (11 sets, daily range): BP systolic 111–137; BP diastolic 62–92
[2022-12-22] MEDS: HYDROcodone-ACET 5/325MG TAB PO PRN ×2 (03:24→08:53)
[2022-12-22 05:08] LABS: Basophils # (auto) 0.2 10 ^3/uL (0-0.2); Eosinophils # (auto) 0.5 10 ^3/uL (0-0.8); Eosinophils % (auto) 5.5 % (0.0-7.0); Monocytes % (auto) 10.6 % (0.0-12.0); Neutrophils # (auto) 5.6 10 ^3/uL (1.6-8.6); Nucleated Red Blood Cells % 0.2 %
[2022-12-22 05:11] LABS: Basophils % (auto) 1.9 % (0.0-2.0); Hematocrit 43.9 % (41.0-53.0); Hemoglobin 14.1 g/dL (13.5-17.5); Lymphocytes % (auto) 21.9 % (10.0-50.0); Mean Corpuscular Hemoglobin 25.8 pg (28.0-32.0); Mean Corpuscular Hgb Conc. 32.1 g/dL (32.0-36.0); Mean Corpuscular Volume 80.3 fL (80.0-100.0); Neutrophils % (auto) 60.1 % (37.0-80.0); Red Blood Cells 5.47 10^6/uL (4.5-5.90); Red Cell Distribution Width 17.2 % (11.8-14.3); White Blood Cell 9.3 10^3/uL (4.4-10.8)
[2022-12-22 05:28] LABS: BUN/Creatinine Ratio 26.6 (10.0-20.0); Calcium 8.5 mg/dL (8.5-10.1); Potassium 3.7 mmol/L (3.5-5.1)
[2022-12-22] MEDS: ceFAZolin 1GM/50ML 50 ML IV SCH ×3 (07:01→22:27)
[2022-12-22] MEDS: FUROSEMIDE 40 MG/4 ML VIAL IV SCH (07:02)
[2022-12-22] MEDS: ASPirin 81 mg TAB PO SCH (09:59)
[2022-12-22] MEDS: POTASSIUM CHL 20 Meq TABLET PO SCH (09:59)
[2022-12-22] MEDS: MORPHINE SULF 15mg ER tab PO SCH (10:00)
[2022-12-22] MEDS: ENOXAPARIN SOD 40 MG/0.4 ML SYRINGE SC SCH (10:39)
[2022-12-22] MEDS: FAMOTIDINE (10MG/ML) 2ML VL IV SCH (10:39)
[2022-12-22] MEDS: SODIUM CHLOR 0.9% PF (SALINE LOCK) 10ML VIAL/SYR IV SCH ×2 (10:39→22:27)
[2022-12-22] MEDS: OXYCODONE W/ ACETAMINOPHEN 5/325MG TABLET PO PRN ×2 (14:14→22:28)
[2022-12-22] MEDS: AMPICILLIN & SULBACTAM SODIUM 3 GM in SODIUM CHL 0.9% 100 ML IV SCH ×3 (14:50→23:43)
[2022-12-23] MEDS: OXYCODONE W/ ACETAMINOPHEN 5/325MG TABLET PO PRN ×4 (02:28→17:58)
[2022-12-23 05:00] VITALS: BP 126/84
[2022-12-23 06:01] LABS: BUN/Creatinine Ratio 27.1 (10.0-20.0); Calcium 9.3 mg/dL (8.5-10.1); Potassium 4.3 mmol/L (3.5-5.1)
[2022-12-23 06:03] LABS: Eosinophils # (auto) 0.5 10 ^3/uL (0-0.8); Hemoglobin 14.3 g/dL (13.5-17.5); Red Blood Cells 5.59 10^6/uL (4.5-5.90)
[2022-12-23 06:08] LABS: Basophils # (auto) 0.2 10 ^3/uL (0-0.2); Basophils % (auto) 1.8 % (0.0-2.0); Eosinophils % (auto) 5.2 % (0.0-7.0); Hematocrit 44.7 % (41.0-53.0); Lymphocytes % (auto) 20.7 % (10.0-50.0); Mean Corpuscular Hemoglobin 25.5 pg (28.0-32.0); Mean Corpuscular Volume 79.9 fL (80.0-100.0); Monocytes # (auto) 0.8 10 ^3/uL (0-1.3); Monocytes % (auto) 8.9 % (0.0-12.0); Neutrophils % (auto) 63.4 % (37.0-80.0); Nucleated Red Blood Cells % 0.2 %; Red Cell Distribution Width 16.4 % (11.8-14.3); White Blood Cell 9.5 10^3/uL (4.4-10.8)
[2022-12-23] MEDS: AMPICILLIN & SULBACTAM SODIUM 3 GM in SODIUM CHL 0.9% 100 ML IV SCH ×4 (06:30→22:16)
[2022-12-23] MEDS: ceFAZolin 1GM/50ML 50 ML IV SCH (06:31)
[2022-12-23 09:00] VITALS: BP 111/72
[2022-12-23] MEDS ORDERED: MORPHINE SULF 15mg ER tab PO ONE (10:30)
[2022-12-23] MEDS: ASPirin 81 mg TAB PO SCH (10:45)
[2022-12-23] MEDS: FAMOTIDINE 20 MG TAB PO SCH (10:45)
[2022-12-23] MEDS: FUROSEMIDE 40 MG TAB PO SCH (10:45)
[2022-12-23] MEDS: ENOXAPARIN SOD 40 MG/0.4 ML SYRINGE SC SCH (10:45)
[2022-12-23] MEDS: SODIUM CHLOR 0.9% PF (SALINE LOCK) 10ML VIAL/SYR IV SCH ×2 (10:47→22:55)
[2022-12-23 13:00] VITALS: BP_SYST 101; BP_SYST 141; BP_DIAS 60; BP_DIAS 75
[2022-12-23 16:39] VITALS: BP 138/78
[2022-12-23 22:00] VITALS: BP 135/81
[2022-12-23] MEDS: MORPHINE SULF 15mg ER tab PO SCH (22:06)
[2022-12-24] MEDS: OXYCODONE W/ ACETAMINOPHEN 5/325MG TABLET PO PRN ×4 (00:17→19:23)
[2022-12-24 05:00] VITALS: BP 121/71
[2022-12-24] MEDS: AMPICILLIN & SULBACTAM SODIUM 3 GM in SODIUM CHL 0.9% 100 ML IV SCH ×4 (05:00→22:19)
[2022-12-24 09:00] VITALS: BP 151/86
[2022-12-24] MEDS: ASPirin 81 mg TAB PO SCH (10:57)
[2022-12-24] MEDS: ENOXAPARIN SOD 40 MG/0.4 ML SYRINGE SC SCH (10:58)
[2022-12-24] MEDS: FAMOTIDINE 20 MG TAB PO SCH (10:58)
[2022-12-24] MEDS: MORPHINE SULF 15mg ER tab PO SCH ×2 (10:58→22:19)
[2022-12-24] MEDS: SODIUM CHLOR 0.9% PF (SALINE LOCK) 10ML VIAL/SYR IV SCH ×2 (10:59→22:20)
[2022-12-24] MEDS: FUROSEMIDE 40 MG TAB PO SCH (10:59)
[2022-12-24 13:00] VITALS: BP 161/91
[2022-12-24 17:00] VITALS: BP 131/94
[2022-12-24 22:00] VITALS: BP 160/84
[2022-12-25] MEDS: OXYCODONE W/ ACETAMINOPHEN 5/325MG TABLET PO PRN ×4 (02:11→18:41)
[2022-12-25 05:00] VITALS: BP 137/85
[2022-12-25] MEDS: AMPICILLIN & SULBACTAM SODIUM 3 GM in SODIUM CHL 0.9% 100 ML IV SCH ×4 (06:06→22:53)
[2022-12-25 09:00] VITALS: BP 123/76
[2022-12-25] MEDS: FAMOTIDINE 20 MG TAB PO SCH (10:16)
[2022-12-25] MEDS: SODIUM CHLOR 0.9% PF (SALINE LOCK) 10ML VIAL/SYR IV SCH ×2 (10:16→23:03)
[2022-12-25] MEDS: ASPirin 81 mg TAB PO SCH (10:16)
[2022-12-25] MEDS: ENOXAPARIN SOD 40 MG/0.4 ML SYRINGE SC SCH (10:16)
[2022-12-25] MEDS: MORPHINE SULF 15mg ER tab PO SCH ×2 (10:17→22:53)
[2022-12-25] MEDS: FUROSEMIDE 40 MG TAB PO SCH (10:17)
[2022-12-25] MEDS ORDERED: POTA-180 PO (10:46)
[2022-12-25] MEDS ORDERED: FURO40TA4 PO (10:46)
[2022-12-25] MEDS ORDERED: CEPH-510 PO (10:46)
[2022-12-25 13:00] VITALS: BP 111/61
[2022-12-25 17:00] VITALS: BP 123/81
[2022-12-25 22:00] VITALS: BP 126/80
[2022-12-26] MEDS: OXYCODONE W/ ACETAMINOPHEN 5/325MG TABLET PO PRN ×3 (00:03→14:02)
[2022-12-26 05:00] VITALS: BP 122/90
[2022-12-26] MEDS: AMPICILLIN & SULBACTAM SODIUM 3 GM in SODIUM CHL 0.9% 100 ML IV SCH ×2 (05:15→11:00)
[2022-12-26 08:00] VITALS: BP 113/80
[2022-12-26] MEDS: ASPirin 81 mg TAB PO SCH (09:57)
[2022-12-26] MEDS: FUROSEMIDE 40 MG TAB PO SCH (09:57)
[2022-12-26] MEDS: ENOXAPARIN SOD 40 MG/0.4 ML SYRINGE SC SCH (09:57)
[2022-12-26] MEDS: FAMOTIDINE 20 MG TAB PO SCH (09:57)
[2022-12-26] MEDS: MORPHINE SULF 15mg ER tab PO SCH (09:58)
[2022-12-26] MEDS: SODIUM CHLOR 0.9% PF (SALINE LOCK) 10ML VIAL/SYR IV SCH (11:03)
[2022-12-26 12:00] VITALS: BP 120/85
[2022-12-26 14:46] VITALS: BP 113/80
== END 2022-12-26 15:43 | disposition home health service (06) | DRG 870 ==
LOC: ER 17:08 → TELE 22:35 → ICU CENTRL 12-07 18:03 → DOU IN ICU 12-21 02:31 → TELE-EAST 12-22 18:01 → EAST 12-24 02:22
PROVIDERS: ADMIT Nurse Practitioner Family; ATTEND Internal Medicine
PROC: 5A1955Z Respiratory Ventilation, Greater than 96 Consecutive Hours (ICD-10-PCS; principal; 2022-12-07)
PROC: 0BH17EZ Insertion of Endotracheal Airway into Trachea, Via Natural or Artificial Opening (ICD-10-PCS; 2022-12-07)
PROC: 02HV33Z Insertion of Infusion Device into Superior Vena Cava, Percutaneous Approach (ICD-10-PCS; 2022-12-08)
PROC: B548ZZA Ultrasonography of Superior Vena Cava, Guidance (ICD-10-PCS; 2022-12-08)
PROC: 5A09457 Assistance with Respiratory Ventilation, 24-96 Consecutive Hours, Continuous Positive Airway Pressure (ICD-10-PCS; 2022-12-21)
DX: A41.9 Sepsis, unspecified organism (principal); J15.211 Pneumonia due to Methicillin susceptible Staphylococcus aureus; I50.41 Acute combined systolic (congestive) and diastolic (congestive) heart failure; J96.21 Acute and chronic respiratory failure with hypoxia; E87.0 Hyperosmolality and hypernatremia; I42.7 Cardiomyopathy due to drug and external agent; Z68.43 Body mass index [BMI] 50.0-59.9, adult; Z20.822 Contact with and (suspected) exposure to COVID-19; E66.01 Morbid (severe) obesity due to excess calories; I11.0 Hypertensive heart disease with heart failure; E87.6 Hypokalemia; G47.33 Obstructive sleep apnea (adult) (pediatric); G89.29 Other chronic pain; Z87.891 Personal history of nicotine dependence; Z79.899 Other long term (current) drug therapy
CPT/HCPCS: 36415; 36569; 36600; 71045; 71275; 80048; 80053; 81001; 82805; 83036; 83605; 83735; 83880; 84484; 85025; 85379; 85610; 85730; 87040; 87070; 87077; 87081; 87186; 87205; 87804; 93005; 93306; 93970; 94002; 94003; 94660; 96365; 96366; 96367; 96375; 97110; 97116; 97163; 97530; 99291; G0378; J0690; J0696; J1956; J2250; J2405; J2704; J3480; J3490; J7060

== ENCOUNTER 2024-05-06 13:55 | Inpatient (IN) | payer BC ==
[~2024-05-06] VITALS: Ht 177.8 cm; Wt 164.5 kg
[~2024-05-06 13:55] MED LIST: CEPH-510 PO; FURO40TA4 PO; MORP15TA PO; PERCOT PO; POTA-180 PO
[2024-05-06 16:02] LABS: Chloride 101 mmol/L (98-107); Sodium 141 mmol/L (136-145)
[2024-05-06 16:03] LABS: Anion Gap 4 (5-15); Calcium 8.2 mg/dL (8.7-10.4); Carbon Dioxide 36 mmol/L (20-31)
[2024-05-06 16:06] LABS: Basophils # (auto) 0.1 10 ^3/uL (0-0.2); Eosinophils # (auto) 0.2 10 ^3/uL (0-0.8); Eosinophils % (auto) 1.8 % (0.0-7.0); Lymphocytes # (auto) 1.3 10 ^3/uL (0.4-5.4); Mean Corpuscular Hgb Conc. 31.2 g/dL (32.0-36.0); Mean Corpuscular Volume 74.2 fL (80.0-100.0); Monocytes # (auto) 0.8 10 ^3/uL (0-1.3)
[2024-05-06 16:08] LABS: BUN/Creatinine Ratio 16.7 (10.0-20.0); Basophils % (auto) 0.9 % (0.0-2.0); Blood Urea Nitrogen 21 mg/dL (9-23); Glucose 158 mg/dL (74-106); Hematocrit 47.4 % (41.0-53.0); Hemoglobin 14.8 g/dL (13.5-17.5); Lymphocytes % (auto) 10.6 % (10.0-50.0); Mean Corpuscular Hemoglobin 23.2 pg (28.0-32.0); Monocytes % (auto) 6.8 % (0.0-12.0); Neutrophils # (auto) 9.7 10 ^3/uL (1.6-8.6); Neutrophils % (auto) 79.9 % (37.0-80.0); Nucleated Red Blood Cells % 0.4 %; Platelet Count (auto) 237 10^3/uL (140-450); Red Blood Cells 6.39 10^6/uL (4.5-5.90); White Blood Cell 12.2 10^3/uL (4.4-10.8)
[2024-05-06] MEDS: FUROSEMIDE 40 MG/4 ML VIAL IV ONE (16:25)
[2024-05-06 16:28] LABS: Red Cell Distribution Width 20.6 % (11.8-14.3)
[2024-05-06 17:00] VITALS: PULSE 90; RESP 12; O2SAT 92
[2024-05-06 17:38] LABS: COVID19 ANTIGEN SOFIA FIA NEGATIVE (NEGATIVE)
[2024-05-06] MEDS ORDERED: DEXTROSE (50%) 50ML SYRG IV PRN (18:00)
[2024-05-06] MEDS ORDERED: NITROGLYCERIN 0.4 MG SL TAB SL PRN (18:00)
[2024-05-06] MEDS ORDERED: ONDANSETRON HCL 4 MG/2 ML VIAL IV PRN (18:00)
[2024-05-06] MEDS ORDERED: MORPHINE SULFATE INJ 2 MG/ml SYRG IV PRN ×2 (18:00→19:00)
[2024-05-06] MEDS: TRIAMTERENE/HCTZ 37.5/25 MG CAP/TAB PO SCH (18:40)
[2024-05-06] MEDS: cefTRIAXone 1GM/50ML D5W 50 ML IV SCH (18:42)
[2024-05-06] MEDS: AZITHROMYCIN 500MG/ 250ML 250 ML IV SCH (19:17)
[2024-05-06 19:30] VITALS: PULSE 95; RESP 13; O2SAT 92
[2024-05-06 19:41] LABS: Anisocytosis Slight; Platelet Estimate Adequate; Tear Drop Cells FEW
[2024-05-06 19:42] LABS: Hypochromia Moderate
[2024-05-06 20:05] LABS: Urine Bacteria None Seen /hpf (None Seen)
[2024-05-06 20:48] LABS: Urine Blood Negative /uL (Negative); Urine Clarity Clear (Clear); Urine Color Light-Yellow (Yellow); Urine Hyaline Cast FEW /lpf (0 - 2); Urine Protein, UAD Negative (Negative); Urine Specific Gravity 1.014 (1.001-1.035); Urine Urobilinogen Normal (Negative); Urine WBC <1 /hpf (0 - 3)
[2024-05-06] MEDS: ACCU-CHEK COMFORT CURVE STRIP VI SCH (22:00)
[2024-05-06 22:09] VITALS: PULSE 78
[2024-05-06 22:38] VITALS: BP 128/71; PULSE 82; PULSE 87; RESP 18; RESP 19; TEMP 97.8; O2SAT 92; O2SAT 93
[2024-05-06] MEDS: InsuLIN REG 1unit/0.01ml Soln (100units/ml) SC SCH (23:43)
[2024-05-07] VITALS (10 sets, daily range): BP systolic 117–149; BP diastolic 62–82; PULSE 77–99; RESP 18–23; TEMP 96.4–98.5; O2SAT 90–96
[2024-05-07] MEDS ORDERED: METF-370 PO (02:58)
[2024-05-07] MEDS: InsuLIN REG 1unit/0.01ml Soln (100units/ml) SC SCH (06:17)
[2024-05-07 07:42] LABS: Basophils # (auto) 0.1 10 ^3/uL (0-0.2); Basophils % (auto) 0.5 % (0.0-2.0); Eosinophils # (auto) 0.1 10 ^3/uL (0-0.8); Eosinophils % (auto) 0.8 % (0.0-7.0); Hemoglobin 15.8 g/dL (13.5-17.5); Lymphocytes # (auto) 1.2 10 ^3/uL (0.4-5.4); Lymphocytes % (auto) 7.3 % (10.0-50.0); Mean Corpuscular Hemoglobin 23.7 pg (28.0-32.0); Mean Corpuscular Hgb Conc. 30.9 g/dL (32.0-36.0); Mean Corpuscular Volume 76.6 fL (80.0-100.0); Monocytes # (auto) 0.8 10 ^3/uL (0-1.3); Monocytes % (auto) 5.4 % (0.0-12.0); Neutrophils # (auto) 13.6 10 ^3/uL (1.6-8.6); Nucleated Red Blood Cells % 0.6 %; Platelet Count (auto) 241 10^3/uL (140-450); Red Blood Cells 6.66 10^6/uL (4.5-5.90); Red Cell Distribution Width 20.8 % (11.8-14.3); White Blood Cell 15.8 10^3/uL (4.4-10.8)
[2024-05-07 07:44] LABS: Chloride 96 mmol/L (98-107); Potassium 4.2 mmol/L (3.5-5.1)
[2024-05-07 07:45] LABS: Anion Gap 6 (5-15); Carbon Dioxide 34 mmol/L (20-31)
[2024-05-07 07:50] LABS: BUN/Creatinine Ratio 10.5 (10.0-20.0); Blood Urea Nitrogen 16 mg/dL (9-23); Glucose 155 mg/dL (74-106)
[2024-05-07 07:51] LABS: Sodium 136 mmol/L (136-145)
[2024-05-07] MEDS: FUROSEMIDE 40 MG/4 ML VIAL IV SCH ×2 (10:00→20:11)
[2024-05-08] VITALS (8 sets, daily range): BP systolic 96–128; BP diastolic 41–86; PULSE 55–86; RESP 17–21; TEMP 97.9–98.7; O2SAT 89–99
[2024-05-08 05:52] LABS: Anion Gap 4 (5-15); Calcium 8.6 mg/dL (8.7-10.4); Carbon Dioxide 37 mmol/L (20-31); Chloride 93 mmol/L (98-107); Potassium 4.5 mmol/L (3.5-5.1); Sodium 134 mmol/L (136-145)
[2024-05-08 05:58] LABS: BUN/Creatinine Ratio 13.3 (10.0-20.0); Blood Urea Nitrogen 17 mg/dL (9-23); Glucose 103 mg/dL (74-106)
[2024-05-08] MEDS: HYDROcodone-ACET 7.5/325MG TAB PO PRN (10:05)
[2024-05-08] MEDS: oxyCODONE HCL 5MG TAB PO PRN (14:57)
[2024-05-08] MEDS: MORPHINE SULF 15mg ER tab PO SCH (21:11)
[2024-05-08] MEDS ORDERED: traZODone HCL 50 MG TAB PO SCH (22:00)
[2024-05-08] MEDS: LORazepam 0.5 MG TAB PO PRN (22:35)
[2024-05-09] VITALS (11 sets, daily range): BP systolic 100–126; BP diastolic 52–74; PULSE 64–75; RESP 15–20; TEMP 97.8–99.8; O2SAT 73–97
[2024-05-09 08:07] LABS: Alanine Aminotransferase 18 U/L (7-40); Albumin 3.9 g/dL (3.2-4.8); Alkaline Phosphatase 108 U/L (46-116); Anion Gap 5.99999 (5-15); Aspartate Aminotransferase 16 U/L (13-40); Blood Urea Nitrogen 20 mg/dL (9-23); Chloride 89 mmol/L (98-107); Glucose 91 mg/dL (74-106); Potassium 3.5 mmol/L (3.5-5.1); Sodium 135 mmol/L (136-145)
[2024-05-09 08:08] LABS: Bilirubin, Total 1.2 mg/dL (0.2-1.0); Total Protein 7.7 g/dL (5.7-8.2)
[2024-05-09 08:11] LABS: Carbon Dioxide > 40 mmol/L (20-31)
[2024-05-09 09:32] LABS: Magnesium 2.3 mg/dL (1.6-2.6)
[2024-05-09 12:27] LABS: Amphetamine Screen, Urine Neg (NEGATIVE); Barbiturate Scree,Urine Neg (NEGATIVE); Benzodiazephine Screen, Urine Neg (NEGATIVE); Cocaine Screen, Urine Neg (NEGATIVE)
[2024-05-09 12:28] LABS: Cannabinoid Screen, Urine Neg (NEGATIVE); Opiate Scree,Urine Pos (NEGATIVE); Phencyclidine Screen, Urine Neg (NEGATIVE)
[2024-05-09] MEDS: OXYCODONE W/ ACETAMINOPHEN 5/325MG TABLET PO PRN (16:35)
[2024-05-09] MEDS: SACUBITRIL-VALSARTAN 24mg/26mg TAB PO SCH (21:35)
[2024-05-10] VITALS (14 sets, daily range): BP systolic 95–118; BP diastolic 45–72; PULSE 58–73; RESP 15–28; TEMP 97.7–98.6; O2SAT 92–98
[2024-05-10 07:04] LABS: Chloride 88 mmol/L (98-107); Potassium 3.5 mmol/L (3.5-5.1); Sodium 135 mmol/L (136-145)
[2024-05-10 07:05] LABS: Calcium 9.2 mg/dL (8.7-10.4)
[2024-05-10 07:10] LABS: BUN/Creatinine Ratio 21.7 (10.0-20.0); Blood Urea Nitrogen 23 mg/dL (9-23); Glucose 98 mg/dL (74-106)
[2024-05-10 07:28] LABS: Anion Gap 6.99999 (5-15)
[2024-05-10 07:29] LABS: Carbon Dioxide > 40 mmol/L (20-31)
[2024-05-10 08:16] LABS: Basophils # (auto) 0.1 10 ^3/uL (0-0.2); Basophils % (auto) 0.6 % (0.0-2.0); Eosinophils # (auto) 0.2 10 ^3/uL (0-0.8); Lymphocytes # (auto) 1.1 10 ^3/uL (0.4-5.4); Nucleated Red Blood Cells % 0.2 %
[2024-05-10 08:18] LABS: Eosinophils % (auto) 2.1 % (0.0-7.0); Hematocrit 48.5 % (41.0-53.0); Lymphocytes % (auto) 11.4 % (10.0-50.0); Mean Corpuscular Hemoglobin 23.2 pg (28.0-32.0); Mean Corpuscular Volume 74.8 fL (80.0-100.0); Monocytes # (auto) 0.9 10 ^3/uL (0-1.3); Monocytes % (auto) 9.6 % (0.0-12.0); Neutrophils # (auto) 7.5 10 ^3/uL (1.6-8.6); Neutrophils % (auto) 76.3 % (37.0-80.0); Platelet Count (auto) 213 10^3/uL (140-450); Red Blood Cells 6.49 10^6/uL (4.5-5.90); Red Cell Distribution Width 20.1 % (11.8-14.3); White Blood Cell 9.8 10^3/uL (4.4-10.8)
[2024-05-10] MEDS: EMPAGLIFLOZIN 10 MG TAB PO SCH (09:28)
[2024-05-10] MEDS: SPIRONOLACTONE 25 MG TAB PO ONE (17:03)
[2024-05-10] MEDS: POTASSIUM CHL 20 Meq TABLET PO ONE (17:36)
[2024-05-10] MEDS: BUMETANIDE 2.5mg/10ml (0.25 mg/ml) INJ IV ONE (17:36)
[2024-05-10] MEDS: FUROSEMIDE 40 MG TAB PO SCH (17:37)
[2024-05-10] MEDS: SACUBITRIL-VALSARTAN 24mg/26mg TAB PO SCH (21:17)
[2024-05-11] VITALS (11 sets, daily range): BP systolic 93–122; BP diastolic 53–85; PULSE 60–78; RESP 20–22; TEMP 97.5–98.8; O2SAT 86–97
[2024-05-11 08:35] LABS: Chloride 91 mmol/L (98-107); Potassium 3.6 mmol/L (3.5-5.1); Sodium 138 mmol/L (136-145)
[2024-05-11 08:36] LABS: Calcium 9.2 mg/dL (8.7-10.4)
[2024-05-11 08:41] LABS: BUN/Creatinine Ratio 24.4 (10.0-20.0); Blood Urea Nitrogen 29 mg/dL (9-23); Glucose 91 mg/dL (74-106)
[2024-05-11 09:02] LABS: Anion Gap 6.99999 (5-15)
[2024-05-11 09:03] LABS: Carbon Dioxide > 40 mmol/L (20-31)
[2024-05-11] MEDS: SPIRONOLACTONE 25 MG TAB PO SCH (09:40)
[2024-05-11] MEDS ORDERED: SPIRONOLACTONE 25 MG TAB PO SCH (10:00)
[2024-05-11] MEDS: BUMETANIDE 2.5mg/10ml (0.25 mg/ml) INJ IV ONE (11:45)
[2024-05-11] MEDS: POTASSIUM CHL 20 Meq TABLET PO ONE (11:46)
[2024-05-11 15:43] LABS: Base Excess 11.3 mmol/L (-2.0-3.0)
[2024-05-11] MEDS ORDERED: FURO40TA4 PO (18:51)
[2024-05-11] MEDS ORDERED: EMPA1TAB PO (18:51)
[2024-05-11] MEDS ORDERED: SPIR25TA PO (18:51)
[2024-05-12] VITALS (9 sets, daily range): BP systolic 100–103; BP diastolic 58–64; PULSE 59–91; RESP 18–25; TEMP 97.9–98.3; O2SAT 90–100
[2024-05-13] MEDS ORDERED: DAPA5TAB2 PO (17:42)
[2024-05-13] MEDS ORDERED: FURO40TA4 PO (17:42)
== END 2024-05-12 13:30 | disposition home or self-care (01) | DRG 291 ==
LOC: ER 13:55 → TELE-CENTR 18:07 → TELE 18:07 → ER 18:07 → TELE-CENTR 22:18
PROVIDERS: ADMIT Student in an Organized Health Care Education/Training Program; ATTEND Student in an Organized Health Care Education/Training Program
PROC: 5A09357 Assistance with Respiratory Ventilation, Less than 24 Consecutive Hours, Continuous Positive Airway Pressure (ICD-10-PCS; principal; 2024-05-07)
PROC: 5A09357 Assistance with Respiratory Ventilation, Less than 24 Consecutive Hours, Continuous Positive Airway Pressure (ICD-10-PCS; 2024-05-08)
PROC: 5A09357 Assistance with Respiratory Ventilation, Less than 24 Consecutive Hours, Continuous Positive Airway Pressure (ICD-10-PCS; 2024-05-09)
PROC: 5A09357 Assistance with Respiratory Ventilation, Less than 24 Consecutive Hours, Continuous Positive Airway Pressure (ICD-10-PCS; 2024-05-10)
PROC: 5A09357 Assistance with Respiratory Ventilation, Less than 24 Consecutive Hours, Continuous Positive Airway Pressure (ICD-10-PCS; 2024-05-11)
PROC: 5A09357 Assistance with Respiratory Ventilation, Less than 24 Consecutive Hours, Continuous Positive Airway Pressure (ICD-10-PCS; 2024-05-12)
DX: I11.0 Hypertensive heart disease with heart failure (principal); I50.43 Acute on chronic combined systolic (congestive) and diastolic (congestive) heart failure; J96.21 Acute and chronic respiratory failure with hypoxia; J96.22 Acute and chronic respiratory failure with hypercapnia; Z68.43 Body mass index [BMI] 50.0-59.9, adult; E66.2 Morbid (severe) obesity with alveolar hypoventilation; D72.829 Elevated white blood cell count, unspecified; E78.5 Hyperlipidemia, unspecified; E11.9 Type 2 diabetes mellitus without complications; Z96.651 Presence of right artificial knee joint; Z20.822 Contact with and (suspected) exposure to COVID-19; G89.29 Other chronic pain; R74.01 Elevation of levels of liver transaminase levels; I27.20 Pulmonary hypertension, unspecified; Z87.891 Personal history of nicotine dependence
CPT/HCPCS: 36415; 36600; 71045; 76604; 80048; 80053; 80061; 80307; 81001; 82805; 82962; 83036; 83735; 83880; 84443; 84484; 85025; 85379; 87426; 93005; 93306; 94660; G0378; J1815